=== PATIENT | female | born 1960 | race Caucasian/White ===

== ENCOUNTER → 2017-01-31 | Outpatient (CLI) | payer OTHER ==
[~2017-01-31] MED LIST: CARB-47 PO; DULO30CA2 PO; LOVA20TA3 PO; MELO-267 PO; PRAM0.5T12 PO
== END ==
LOC: WC.BC 07:54
DX: Z12.31 Encounter for screening mammogram for malignant neoplasm of breast (principal)
CPT/HCPCS: 77063; G0202